=== PATIENT | male | born 1960 | race Caucasian/White ===

== ENCOUNTER 2019-03-22 10:32 | Emergency (ER) | payer SELFPAY ==
[~2019-03-22] VITALS: Ht 175.3 cm; Wt 89.5 kg
[2019-03-22 10:38] VITALS: BP 133/91; Ht 175.3 cm; Wt 89.5 kg
[2019-03-22] MEDS ORDERED: DOXYCYCLINE HY100 M2 PO (12:26)
[2019-03-22] MEDS ORDERED: TORADOL10 MG PO (12:26)
== END 2019-03-22 13:11 | disposition home or self-care (01) ==
LOC: D.ER 10:32
DX: S90.32XA Contusion of left foot, initial encounter (principal); W20.8XXA Other cause of strike by thrown, projected or falling object, initial encounter; Y93.89 Activity, other specified; Y92.89 Other specified places as the place of occurrence of the external cause; Y99.0 Civilian activity done for income or pay; E11.9 Type 2 diabetes mellitus without complications; I10 Essential (primary) hypertension

== ENCOUNTER 2019-07-30 02:06 | Inpatient (IN) | payer BC ==
[~2019-07-30] VITALS: Ht 175.3 cm; Wt 90.7 kg
[~2019-07-30 02:06] MED LIST: DOXYCYCLINE HY100 M2 PO; TORADOL10 MG PO
[2019-07-30] MEDS ORDERED: ALBUTEROL SULF8.5 GM INH (02:31)
[2019-07-30] MEDS ORDERED: TESSALON PERLE100 MG PO (02:32)
[2019-07-30] MEDS ORDERED: HYDROXYCHLOROQ200 MG PO ×2 (02:32→04:58)
[2019-07-30] MEDS ORDERED: ZITHROMAX250 MG PO (02:32)
[2019-07-30] MEDS ORDERED: PLAVIX75 MG PO (02:34)
[2019-07-30] MEDS ORDERED: LISINOPRIL20 MG PO (02:34)
[2019-07-30] MEDS ORDERED: TENORMIN50 MG PO (02:34)
[2019-07-30] MEDS ORDERED: GLUCOPHAGE1000 MG PO (02:36)
[2019-07-30] MEDS ORDERED: VICTOZA0.6 MG/0.1 SQ (02:36)
[2019-07-30] MEDS ORDERED: AMBIEN10 MG PO (02:37)
[2019-07-30] MEDS ORDERED: SINGULAIR10 MG PO (02:38)
[2019-07-30] MEDS ORDERED: ATIVAN1 MG PO (02:38)
[2019-07-30] MEDS ORDERED: AZITHROMYCIN500 MG PO (03:07)
[2019-07-30] MEDS ORDERED: OMNICEF300 MG PO (03:07)
[2019-07-30 03:30] LABS: BASOPHILS 0.4 % (0-2); EOSINOPHILS 0 % (0-7); HEMATOCRIT 41.1 % (42.0-54.0); IMMATURE GRANULOCYTES 0.4 % (0-5); LYMPHOCYTES 15.6 % (15-50); MCH 30.8 pg (26.0-34.0); MCHC 34.1 g/dL (31.0-37.0); MCV 90.3 fL (80.0-100.0); MEAN PLATELET VOLUME 10.6 fL (7.4-10.4); MONOCYTES 13.9 % (2-11); NEUTROPHILS 69.7 % (40-80); PLATELET COUNT 247 10x3/uL (130-400); RBC 4.55 10x6/uL (4.20-6.10); RDW 13.6 % (11.5-14.5); WBC 4.8 10x3/uL (4.8-10.8)
[2019-07-30 03:35] LABS: CALC OSMOLALITY 264 mosm/kg (275-300); CALCIUM 8.6 mg/dL (8.5-10.1); CARBON DIOXIDE 25.5 mmol/L (21.0-32.0); CHLORIDE - SERUM 95 mmol/L (98-107); CREATININE - SERUM 1.4 mg/dL (0.6-1.3); GLUCOSE 114 mg/dL (74-106); POTASSIUM - SERUM 4.1 mmol/L (3.5-5.1); SODIUM 130 mmol/L (136-145); UREA NITROGEN 22 mg/dL (7-18); eGFR NON AFRICAN AMERICAN 55 mL/min (90-120)
[2019-07-30 03:48] LABS: ALBUMIN 2.9 g/dL (3.4-5.0); ALKALINE PHOSPHATASE 46 U/L (30-120); ALT (SGPT) 50 U/L (10-68); BILIRUBIN - TOTAL 0.47 mg/dL (0.2-1.3); C-REACTIVE PROTEIN > 12.0 mg/dL (0.0-0.9); MAGNESIUM - SERUM 2.2 mg/dL (1.8-2.4); PRO BNP 36 pg/mL (0-125); PROTEIN - SERUM 7.2 g/dL (6.4-8.2); TROPONIN-I < 0.017 ng/mL (0.000-0.060)
[2019-07-30 03:54] VITALS: BP 113/85
--- NOTE | 2019-07-30 04:15 | NUR ---
PT TAKEN TO CT VIA WHEELCHAIR BY TECH. TECH WILL TAKE PT TO HIS ROOM ON MED II WHEN CT IS COMPLETE.
[2019-07-30] MEDS ORDERED: APAP325 MG PO (04:56)
[2019-07-30 05:34] VITALS: BP 103/64; BMI 29.6
--- NOTE | 2019-07-30 05:41 | NUR ---
RECEIVED REPORT FROM BALJEET JEONG IN ER. ARRIVED TO FLOOR IN W/C. ALERT AND ORIENTED X4. UP AD FRANCIA TO B/R. DIAPHORETIC AND GOWN CHANGED. TEMP NOW 99.1. IV TO RT FA SL. C/O LOOSE STOOLS D/T MEDICATIONS HE IS TAKING FOR COVID. DEIES ANY NEEDS AT THIS TIME.
[2019-07-30 08:38] VITALS: BP 136/78
--- NOTE | 2019-07-30 08:49 | NUR ---
PT AWAKE AND ORIENTED, LYING IN BED. LINNENS ARE CLEAN AND DRY, STATES HE'S NOT SWEATING PERFUSELY LIKE HE WAS ON PANEL MONITOR. STATES HE DOES NOT HAVE A HEADACHE AT THIS TIME, THAT HE JUST DOESN'T FEEL "RIGHT". UNABLE TO ELABORATE ON THAT FEELING. NO COMPLAINTS OR CONCERNS AT THIS TIME. V/S WNL. CL IN REACH SRX2.
[2019-07-30 10:29] VITALS: Ht 175.3 cm; Wt 90.7 kg
--- NOTE | 2019-07-30 11:42 | NUR ---
I have reviewed this patient and I concur with the Shift Assessment completed by the Licensed Practical Nurse today this shift.
--- NOTE | 2019-07-30 18:32 | NUR ---
PT ALERT AND ORIENTED, SITTING UP IN BED WHE I ENTERED. C/O FEELING FEVERISH (TEMP 100.1, ADMINED TYLENOL). NO CONCERNS STATED AT THIST EVELINE. CL IN REACH, SRX2.
--- NOTE | 2019-07-30 21:15 | NUR ---
PREVIOUSLY SPOKE TO PT BY PHONE PHISICAL CONTACT AT THIS TIME USING ALL ISOLATION PRECAUTIONS BED LOW AND LOCKED MANY NEEDS ARE SEEN TOO NOP FEVER BS 118 VS WNL SL IV FOR NOW TO PRESERVE SITE ATIVAN AND PROTONIX GIVEN TO PT PER HIS REQUEST
[2019-07-30 21:40] VITALS: BP 117/71
--- NOTE | 2019-07-31 03:34 | NUR ---
I have reviewed this patient and I concur with the Shift Assessment completed by the Licensed Practical Nurse today this shift.
[2019-07-31 05:30] LABS: BASOPHILS 0.6 % (0-2); EOSINOPHILS 15.3 % (0-7); HEMATOCRIT 38.5 % (42.0-54.0); HEMOGLOBIN 12.8 g/dL (13.5-17.5); LYMPHOCYTES 14.2 % (15-50); MCH 30.5 pg (26.0-34.0); MCHC 33.2 g/dL (31.0-37.0); MCV 91.7 fL (80.0-100.0); MEAN PLATELET VOLUME 10.4 fL (7.4-10.4); MONOCYTES 11.6 % (2-11); NEUTROPHILS 52.3 % (40-80); PLATELET COUNT 262 10x3/uL (130-400); RDW 13.8 % (11.5-14.5); WBC 4.6 10x3/uL (4.8-10.8)
[2019-07-31 06:18] LABS: ALBUMIN 2.5 g/dL (3.4-5.0); ANION GAP 13.5 mmol/L (8-16); BILIRUBIN - TOTAL 0.32 mg/dL (0.2-1.3); CARBON DIOXIDE 23.7 mmol/L (21.0-32.0); CREATININE - SERUM 1.2 mg/dL (0.6-1.3); POTASSIUM - SERUM 4.2 mmol/L (3.5-5.1); PROTEIN - SERUM 6.6 g/dL (6.4-8.2)
[2019-07-31 09:02] VITALS: BP 110/62
--- NOTE | 2019-07-31 09:23 | MORECARE ---
CASE MANAGEMENT DISCHARGE SUMMARY PATIENT: SHYLA ELLIOTT JR UNIT: [id number] ADM DATE: 07/30/19 AGE: 58 : 58 SEX: M ROOM/BED: D.2133 AUTHOR: EDDIE MACHUCA PHYSICIAN: REFERRING PHYSICIAN: LUISITO LINARES MD DATE OF SERVICE: 07/31/19 Discharge Plan Patient Name: SHYLA ELLIOTT [facility] [facility] 1960 Planned Disposition: Home Anticipated Discharge Date: Discharge Date: Expected LOS: Initial Reviewer: [email or web address] Initial Review Date: 07/31/2019 Generated: 07/31/19 10:23 am DCPIA - Discharge Planning Initial Assessment Updated by [email or web address]: Jerson Garces on 07/31/19 9:21 am * Is the patient Alert and Oriented? Yes * How many steps to enter\exit or inside your home? * PCP DR. SAHU * Pharmacy [facility] * Preadmission Environment Home with Family * ADLs Independent * Equipment None * Other Equipment NO MEDICAL EQUIPMENT PROVIDER PREFERENCE * List name and contact numbers for known caregivers / representatives who currently or will assist patient after discharge: ROSALIE ELLIOTT, SPOUSE, * Verbal permission to speak to the caregivers and representatives has been obtained from the patient. N/A * Community resources currently utilized None * Please name any agencies selected above. NONE * Additional services required to return to the preadmission environment? No * Can the patient safely return to the preadmission environment? Yes * Has this patient been hospitalized within the prior 30 days at any hospital? No Patient Name: SHYLA ELLIOTT Page [phone] at 0923 All edits/amendments must be made on the electronic document DICTATION DATE: 07/31/19922 LITHOGRAPHIC PRESS OPERATOR: KAYLIN 07/31/19922 RPT#: [id number] DC DATE: STATUS: ADM IN [facility] [address] [place] [address] END OF REPORT
--- NOTE | 2019-07-31 09:30 | MORECARE ---
CASE MANAGEMENT DISCHARGE SUMMARY PATIENT: SHYLA ELLIOTT JR UNIT: [id number] ADM DATE: 07/30/19 AGE: 58 : 58 SEX: M ROOM/BED: D.2133 AUTHOR: SVEN,DOC PHYSICIAN: REFERRING PHYSICIAN: LUISITO LINARES MD DATE OF SERVICE: 07/31/19 Discharge Plan Patient Name: SHYLA ELLIOTT Facility: [facility]:[place] : 1960 Planned Disposition: Home Anticipated Discharge Date: Discharge Date: Expected LOS: Initial Reviewer: [email or web address] Initial Review Date: 07/31/2019 Generated: 07/31/19 10:29 am Comments DCP- Discharge Planning Updated by [email or web address]: Jerson Garces on 07/31/19 8:[address] Patient Name: SHYLA ELLIOTT Admission Status: ER Accout number: [id number] Admission Date: 07-30-2019 : 1960 Admission Diagnosis: Attending: LUISITO LINARES Current LOS: 1 Anticipated DC Date: Planned Disposition: Home Primary Insurance: BCTNLIFE Discharge Planning Comments: CM SPOKE TO PT VIA ROOM PHONE DUE TO INFECTION CONTROL PROTOCOL, TO DISCUSS DISCHARGE PLANNING AND NEEDS. PT REPORTS LIVING AT HOME INDEPENDENTLY WITH HER SPOUSE. PT HAS NO MEDICAL EQUIPMENT AND NO OUTSIDE SERVICES ASSISTING IN THE HOME. CM DISCUSSED AVAILABILITY OF HOME HEALTH, REHAB SERVICES AND MEDICAL EQUIPMENT. PT DENIES DISCHARGE NEEDS AT THIS TIME, REPORTS FAMILY WILL PICK HIM UP FOR DISCHARGE HOME. PT PLANS TO DISCHARGE HOME WITH SPOUSE, PT HAS NO ANTICIPATED DISCHARGE NEEDS AT THIS TIME. FAMILY TO TRANSPORT HOME AT DISCHARGE. CM TO FOLLOW AND ASSIST IF NEEDED. Sales Engineering Manager: Jerson Garces DCPIA - Discharge Planning Initial Assessment Updated by [email or web address]: Jerson Garces on 07/31/19 9:21 am * Is the patient Alert and Oriented? Yes * How many steps to enter\exit or inside your home? * PCP DR. SAHU * Pharmacy [facility] [place] * Preadmission Environment Home with Family * ADLs Independent * Equipment None * Other Equipment NO MEDICAL EQUIPMENT PROVIDER PREFERENCE * List name and contact numbers for known caregivers / representatives who currently or will assist patient after discharge: ROSALIE ELLIOTT, SPOUSE, * Verbal permission to speak to the caregivers and representatives has been obtained from the patient. N/A * Community resources currently utilized None * Please name any agencies selected above. NONE * Additional services required to return to the preadmission environment? No * Can the patient safely return to the preadmission environment? Yes * Has this patient been hospitalized within the prior 30 days at any hospital? No Last DP export: 07/31/19 8:23 a Patient Name: SHYLA ELLIOTT Page [phone] at 0930 All edits/amendments must be made on the electronic document DICTATION DATE: 07/31/19928 SECURITY INFRASTRUCTURE ENGINEER: DM 07/31/19928 RPT#: [id number] DC DATE: STATUS: ADM IN [facility] [address] [place] [address] END OF REPORT
--- NOTE | 2019-07-31 14:07 | NUR ---
I have reviewed this patient and I concur with the Shift Assessment completed by the Licensed Practical Nurse today this shift.
[2019-07-31 16:27] VITALS: BP 121/61
--- NOTE | 2019-07-31 19:07 | NUR ---
SPOKE WITH PT BY PHONE PT IS ALERT COUGH NOTED REMINED PT OF STOOL NEEDED CONTINUE TO OBSERVE DROPLET ISOLATION AND ATTEMPTING TO LIMIT TRIPS TO THE ROOM PT DENIES NEEDS AT THIS TIME
[2019-08-01 01:10] VITALS: BP 130/76
--- NOTE | 2019-08-01 05:27 | NUR ---
I have reviewed this patient and I concur with the Shift Assessment completed by the Licensed Practical Nurse today this shift.
[2019-08-01 06:17] VITALS: BP 145/78
[2019-08-01 07:05] LABS: BASOPHILS 0.8 % (0-2); EOSINOPHILS 1.9 % (0-7); HEMATOCRIT 39.7 % (42.0-54.0); IMMATURE GRANULOCYTES 0.6 % (0-5); LYMPHOCYTES 26.7 % (15-50); MCH 30.4 pg (26.0-34.0); MCHC 32.7 g/dL (31.0-37.0); MCV 92.8 fL (80.0-100.0); MEAN PLATELET VOLUME 10.3 fL (7.4-10.4); MONOCYTES 19.7 % (2-11); NEUTROPHILS 50.3 % (40-80); PLATELET COUNT 295 10x3/uL (130-400); RBC 4.28 10x6/uL (4.20-6.10); RDW 13.8 % (11.5-14.5); WBC 4.8 10x3/uL (4.8-10.8)
[2019-08-01 07:42] LABS: ALBUMIN 2.4 g/dL (3.4-5.0); ALKALINE PHOSPHATASE 44 U/L (30-120); BILIRUBIN - TOTAL 0.26 mg/dL (0.2-1.3); CALCIUM 7.4 mg/dL (8.5-10.1); CARBON DIOXIDE 23.1 mmol/L (21.0-32.0); CHLORIDE - SERUM 102 mmol/L (98-107); GLUCOSE 105 mg/dL (74-106); POTASSIUM - SERUM 4.5 mmol/L (3.5-5.1); PROTEIN - SERUM 5.8 g/dL (6.4-8.2); SODIUM 134 mmol/L (136-145); eGFR NON AFRICAN AMERICAN 81 mL/min (90-120)
[2019-08-01 07:43] LABS: ALT (SGPT) 80 U/L (10-68); CALC OSMOLALITY 267 mosm/kg (275-300); UREA NITROGEN 13 mg/dL (7-18)
[2019-08-01 08:43] VITALS: BP 125/68
--- NOTE | 2019-08-01 20:50 | NUR ---
PT SITTING UP IN BED. NO SIGNS OF DISTRESS. PT DENIES ANY PAIN OR NEEDS AT THIS TIME. REINFORCED PIV DRESSING TO RIGHT HAND. CL IN REACH, BED IN LOWEST POSITION.
[2019-08-01 21:07] VITALS: BP 135/72
[2019-08-02 05:05] VITALS: BP 123/75
[2019-08-02 06:50] LABS: ALBUMIN 2.7 g/dL (3.4-5.0); ALKALINE PHOSPHATASE 50 U/L (30-120); ALT (SGPT) 87 U/L (10-68); BILIRUBIN - TOTAL 0.33 mg/dL (0.2-1.3); CALC OSMOLALITY 269 mosm/kg (275-300); CALCIUM 7.7 mg/dL (8.5-10.1); CARBON DIOXIDE 24.1 mmol/L (21.0-32.0); CHLORIDE - SERUM 102 mmol/L (98-107); CREATININE - SERUM 0.9 mg/dL (0.6-1.3); GLUCOSE 114 mg/dL (74-106); POTASSIUM - SERUM 4.4 mmol/L (3.5-5.1); PROTEIN - SERUM 6.3 g/dL (6.4-8.2); SODIUM 135 mmol/L (136-145); UREA NITROGEN 10 mg/dL (7-18); eGFR NON AFRICAN AMERICAN > 90 mL/min (90-120)
[2019-08-02 07:05] LABS: BASOPHILS 0.6 % (0-2); EOSINOPHILS 1.9 % (0-7); HEMATOCRIT 38.8 % (42.0-54.0); HEMOGLOBIN 12.8 g/dL (13.5-17.5); IMMATURE GRANULOCYTES 0.8 % (0-5); LYMPHOCYTES 21.2 % (15-50); MCH 30.5 pg (26.0-34.0); MCV 92.6 fL (80.0-100.0); MEAN PLATELET VOLUME 9.8 fL (7.4-10.4); MONOCYTES 19.3 % (2-11); NEUTROPHILS 56.2 % (40-80); PLATELET COUNT 340 10x3/uL (130-400); RBC 4.19 10x6/uL (4.20-6.10); RDW 13.7 % (11.5-14.5); WBC 5.2 10x3/uL (4.8-10.8)
[2019-08-02 07:09] LABS: C-REACTIVE PROTEIN 18.8 mg/dL (0.0-0.9)
--- NOTE | 2019-08-02 08:15 | NUR ---
PT RECEIVED AWAKE AND ALERT, LYING IN BED. DRY COUGH NOTED. COMPLAINT OF NOT BEING ABLE TO GET OUT OF ROOM AND WALK. PULSE OX 94% ON 2 LITERS.
[2019-08-02 08:19] VITALS: BP 119/66
--- NOTE | 2019-08-02 08:34 | MORECARE ---
CASE MANAGEMENT DISCHARGE SUMMARY PATIENT: SHYLA ELLIOTT JR UNIT: [id number] ADM DATE: 07/30/19 AGE: 58 : 58 SEX: M ROOM/BED: D.2133 AUTHOR: SVEN,DOC PHYSICIAN: REFERRING PHYSICIAN: LUISITO LINARES MD DATE OF SERVICE: 08/02/19 Discharge Plan Patient Name: SHYLA ELLIOTT Facility: [facility]:[place] : 1960 Planned Disposition: Home Anticipated Discharge Date: Discharge Date: Expected LOS: Initial Reviewer: [email or web address] Initial Review Date: 07/31/2019 Generated: 08/02/19 9:34 am DCP- Discharge Planning Updated by [email or web address]: Jerson Garces on 07/31/19 8:[address] Patient Name: SHYLA ELLIOTT Admission Status: ER Accout number: [id number] Admission Date: 07-30-2019 : 1960 Admission Diagnosis: Attending: LUISITO LINARES Current LOS: 1 Anticipated DC Date: Planned Disposition: Home Primary Insurance: BCTNLIFE Discharge Planning Comments: CM SPOKE TO PT VIA ROOM PHONE DUE TO INFECTION CONTROL PROTOCOL, TO DISCUSS DISCHARGE PLANNING AND NEEDS. PT REPORTS LIVING AT HOME INDEPENDENTLY WITH HER SPOUSE. PT HAS NO MEDICAL EQUIPMENT AND NO OUTSIDE SERVICES ASSISTING IN THE HOME. CM DISCUSSED AVAILABILITY OF HOME HEALTH, REHAB SERVICES AND MEDICAL EQUIPMENT. PT DENIES DISCHARGE NEEDS AT THIS TIME, REPORTS FAMILY WILL PICK HIM UP FOR DISCHARGE HOME. PT PLANS TO DISCHARGE HOME WITH SPOUSE, PT HAS NO ANTICIPATED DISCHARGE NEEDS AT THIS TIME. FAMILY TO TRANSPORT HOME AT DISCHARGE. CM TO FOLLOW AND ASSIST IF NEEDED. Architecture Faculty Member: Jerson Garces DCPIA - Discharge Planning Initial Assessment Updated by [id number]: Jerson Garces on 07/31/19 9:21 am * Is the patient Alert and Oriented? Yes * How many steps to enter\exit or inside your home? * PCP DR. SAHU * Pharmacy [facility], [place] * Preadmission Environment Home with Family * ADLs Independent * Equipment None * Other Equipment NO MEDICAL EQUIPMENT PROVIDER PREFERENCE * List name and contact numbers for known caregivers / representatives who currently or will assist patient after discharge: ROSALIE ELLIOTT, SPOUSE, * Verbal permission to speak to the caregivers and representatives has been obtained from the patient. N/A * Community resources currently utilized None * Please name any agencies selected above. NONE * Additional services required to return to the preadmission environment? No * Can the patient safely return to the preadmission environment? Yes * Has this patient been hospitalized within the prior 30 days at any hospital? No Last DP export: 07/31/19 8:30 a Patient Name: SHYLA ELLIOTT Page [phone] at 0834 All edits/amendments must be made on the electronic document DICTATION DATE: 08/02/19833 SALES OFFICE ASSISTANT: DM 08/02/19833 RPT#: [id number] DC DATE: STATUS: ADM IN [facility] [address] [place] [address] END OF REPORT
--- NOTE | 2019-08-02 13:42 | NUR ---
Nutrition Follow-up: In droplet isolation; Covid-19 positive. Nursing reports pt eating well. Noted diarrhea resolved. Diet: Diabetic No new wt; last wt: 200# (07/29) Labs noted: Na 135, Glu 114, Ca 7.7, Alb 2.7 Meds noted: Questran, Protonix, NS @ 100 -Continue current diet as tolerated. -RD following.
--- NOTE | 2019-08-02 19:23 | NUR ---
MADE CONTACT WITH PT BY PHONE PT WAS ALERT AND OX4 ASKED FOR WATER AND SNACKS NEXT TIME I ENTER THE ROOM I WILL LIMIT TIME SPENT IN ROOM MUCH POSS AND WILL CONTINUE TO OBSERVE DROPLET ISOLATION
--- NOTE | 2019-08-02 21:13 | NUR ---
CONTACT MADE WITH PT BED LOW AND LOCKED CALL LIGHT IN REACH SAW TO A FEW NEEDS MEDS GIVEN AND VS DONE
[2019-08-02 21:26] VITALS: BP 137/55
[2019-08-03 00:26] VITALS: BP 124/56
--- NOTE | 2019-08-03 04:02 | NUR ---
I have reviewed this patient and I concur with the Shift Assessment completed by the Licensed Practical Nurse today this shift.
[2019-08-03 05:22] LABS: ALBUMIN 2.3 g/dL (3.4-5.0); ALKALINE PHOSPHATASE 50 U/L (30-120); ALT (SGPT) 71 U/L (10-68); BILIRUBIN - TOTAL 0.43 mg/dL (0.2-1.3); CARBON DIOXIDE 23.3 mmol/L (21.0-32.0); CHLORIDE - SERUM 103 mmol/L (98-107); GLUCOSE 117 mg/dL (74-106); PROTEIN - SERUM 6.6 g/dL (6.4-8.2); SODIUM 134 mmol/L (136-145); eGFR NON AFRICAN AMERICAN 81 mL/min (90-120)
[2019-08-03 05:29] LABS: BASOPHILS 0.5 % (0-2); EOSINOPHILS 3.8 % (0-7); HEMATOCRIT 36.3 % (42.0-54.0); IMMATURE GRANULOCYTES 0.5 % (0-5); LYMPHOCYTES 22.3 % (15-50); MCH 30.6 pg (26.0-34.0); MCHC 33.1 g/dL (31.0-37.0); MCV 92.6 fL (80.0-100.0); MEAN PLATELET VOLUME 10.1 fL (7.4-10.4); MONOCYTES 19.4 % (2-11); NEUTROPHILS 53.5 % (40-80); PLATELET COUNT 399 10x3/uL (130-400); RBC 3.92 10x6/uL (4.20-6.10); RDW 13.6 % (11.5-14.5); WBC 5.8 10x3/uL (4.8-10.8)
[2019-08-03 05:31] LABS: CALC OSMOLALITY 267 mosm/kg (275-300); UREA NITROGEN 11 mg/dL (7-18)
--- NOTE | 2019-08-03 07:22 | NUR ---
PT RECEIVED AWAKE AND ALERT IN BED. RT IN ROOM AT PRESENT. NO NEEDS EXPRESSED.
[2019-08-03 07:58] VITALS: BP 123/76
[2019-08-03 14:09] VITALS: BP 134/69
[2019-08-03 21:16] VITALS: BP 137/75
--- NOTE | 2019-08-03 21:31 | NUR ---
RECEIVED UP IN BED WITH EYES OPEN AND TV ON. ALERT AND ORIENTED X4. UP AD FRANCIA. NOT WEARING O2 AT THIS TIME. O2 SAT 97% ON ROOM AIR. IV TO RT HAND SL. TELEMETRY IN PLACE. DENIES ANY NEEDS AT THIS TIME.
[2019-08-04 00:10] VITALS: BP 128/78
[2019-08-04 04:58] LABS: BASOPHILS 1.1 % (0-2); EOSINOPHILS 4.7 % (0-7); HEMATOCRIT 38.6 % (42.0-54.0); HEMOGLOBIN 12.6 g/dL (13.5-17.5); IMMATURE GRANULOCYTES 1.3 % (0-5); LYMPHOCYTES 26.4 % (15-50); MCH 30.3 pg (26.0-34.0); MCHC 32.6 g/dL (31.0-37.0); MCV 92.8 fL (80.0-100.0); MEAN PLATELET VOLUME 9.7 fL (7.4-10.4); MONOCYTES 16.9 % (2-11); NEUTROPHILS 49.6 % (40-80); PLATELET COUNT 460 10x3/uL (130-400); RBC 4.16 10x6/uL (4.20-6.10); RDW 13.4 % (11.5-14.5); WBC 5.3 10x3/uL (4.8-10.8)
[2019-08-04 05:15] LABS: ALBUMIN 2.5 g/dL (3.4-5.0); BILIRUBIN - TOTAL 0.32 mg/dL (0.2-1.3); CALCIUM 8.1 mg/dL (8.5-10.1); CARBON DIOXIDE 26.5 mmol/L (21.0-32.0); CREATININE - SERUM 1.1 mg/dL (0.6-1.3); POTASSIUM - SERUM 3.5 mmol/L (3.5-5.1)
[2019-08-04 05:35] VITALS: BP 131/73
--- NOTE | 2019-08-04 08:59 | NUR ---
PT LAYING SUPINE, RR EVEN AND UNLABORED. DENIES NEEDS OR PAIN AT THIS TIME. CALL LIGHT WITHIN REACH. BED IN LOWEST POSITION. WILL CONTINUE TO MONITOR.
[2019-08-04 09:43] VITALS: BP 144/86
[2019-08-04 12:23] VITALS: BP 131/69
--- NOTE | 2019-08-04 17:21 | NUR ---
D/C INS TRUCTIONS REVIEWED WITH PT. VERBALIZED AGREEMENT. MONITOR REMOVED AND RETURNED TO AUTOMATIC CLIPPER AND STRIPPER. PT LEFT WITH ALL BELONGINGS AND ISOLATION PRECAUTIONS INTACT VIA WHEELCHAIR. UNABLE TO SIGN PAPERWORK DUE TO ISOLATION.
--- NOTE | 2019-08-05 10:37 | MORECARE ---
CASE MANAGEMENT DISCHARGE SUMMARY PATIENT: SHYLA ELLIOTT JR UNIT: [id number] ADM DATE: 07/30/19 AGE: 58 : 58 SEX: M ROOM/BED: D.2133 AUTHOR: SVEN,DOC PHYSICIAN: REFERRING PHYSICIAN: LUISITO LINARES MD DATE OF SERVICE: 08/05/19 Discharge Plan Patient Name: SHYLA ELLIOTT Facility: [facility]:[place] : 1960 Planned Disposition: Home Anticipated Discharge Date: Discharge Date: 08/04/2019 Expected LOS: Initial Reviewer: [email or web address] Initial Review Date: 07/31/2019 Generated: 08/05/19 11:36 am DCP- Discharge Planning Updated by [email or web address]: Jerson Garces on 07/31/19 8:[address] Patient Name: SHYLA ELLIOTT Admission Status: ER Accout number: [id number] Admission Date: 07-30-2019 : 1960 Admission Diagnosis: Attending: LUISITO LINARES Current LOS: 1 Anticipated DC Date: Planned Disposition: Home Primary Insurance: BCTNLIFE Discharge Planning Comments: CM SPOKE TO PT VIA ROOM PHONE DUE TO INFECTION CONTROL PROTOCOL, TO DISCUSS DISCHARGE PLANNING AND NEEDS. PT REPORTS LIVING AT HOME INDEPENDENTLY WITH HER SPOUSE. PT HAS NO MEDICAL EQUIPMENT AND NO OUTSIDE SERVICES ASSISTING IN THE HOME. CM DISCUSSED AVAILABILITY OF HOME HEALTH, REHAB SERVICES AND MEDICAL EQUIPMENT. PT DENIES DISCHARGE NEEDS AT THIS TIME, REPORTS FAMILY WILL PICK HIM UP FOR DISCHARGE HOME. PT PLANS TO DISCHARGE HOME WITH SPOUSE, PT HAS NO ANTICIPATED DISCHARGE NEEDS AT THIS TIME. FAMILY TO TRANSPORT HOME AT DISCHARGE. CM TO FOLLOW AND ASSIST IF NEEDED. Motor Generator Set Operator: Jerson Garces DCPIA - Discharge Planning Initial Assessment Updated by [email or web address]: Jerson Garces on 07/31/19 9:21 am * Is the patient Alert and Oriented? Yes * How many steps to enter\exit or inside your home? * PCP DR. SAHU * Pharmacy [facility], [place] * Preadmission Environment Home with Family * ADLs Independent * Equipment None * Other Equipment NO MEDICAL EQUIPMENT PROVIDER PREFERENCE * List name and contact numbers for known caregivers / representatives who currently or will assist patient after discharge: ROSALIE ELLIOTT, SPOUSE, * Verbal permission to speak to the caregivers and representatives has been obtained from the patient. N/A * Community resources currently utilized None * Please name any agencies selected above. NONE * Additional services required to return to the preadmission environment? No * Can the patient safely return to the preadmission environment? Yes * Has this patient been hospitalized within the prior 30 days at any hospital? No Last DP export: 08/02/19 7:34 am Patient Name: SHYLA ELLIOTT Page 11170 at 1037 All edits/amendments must be made on the electronic document DICTATION DATE: 08/05/19 1036 CHURCH ORGANIST: KAYLIN 08/05/19 1036 RPT#: [id number] DC DATE:08/04/19 STATUS: DIS IN [facility] [address] [place] [address] END OF REPORT
== END 2019-08-04 17:30 | disposition home or self-care (01) | DRG 190 ==
LOC: D.ER 02:06 → D.M2 03:45
PROVIDERS: Family Medicine; Internal Medicine Pulmonary Disease; ADMIT Internal Medicine Nephrology; ATTEND Internal Medicine Nephrology
DX: J44.0 Chronic obstructive pulmonary disease with (acute) lower respiratory infection (principal); J18.9 Pneumonia, unspecified organism; E87.1 Hypo-osmolality and hyponatremia; N17.9 Acute kidney failure, unspecified; J44.1 Chronic obstructive pulmonary disease with (acute) exacerbation; B97.29 Other coronavirus as the cause of diseases classified elsewhere; R19.7 Diarrhea, unspecified; E11.65 Type 2 diabetes mellitus with hyperglycemia; D64.9 Anemia, unspecified; Z87.891 Personal history of nicotine dependence

== ENCOUNTER 2019-09-25 11:03 | Emergency (ER) | payer OTHER ==
[~2019-09-25] VITALS: Ht 175.3 cm; Wt 84.5 kg
[~2019-09-25 11:03] MED LIST changes: +ALBUTEROL SULF8.5 GM INH; +AMBIEN10 MG PO; +APAP325 MG PO; +ATIVAN1 MG PO; +AZITHROMYCIN500 MG PO; +GLUCOPHAGE1000 MG PO; +HYDROXYCHLOROQ200 MG PO; +LISINOPRIL20 MG PO; +OMNICEF300 MG PO; +PLAVIX75 MG PO; +SINGULAIR10 MG PO; +TENORMIN50 MG PO; +TESSALON PERLE100 MG PO; +VICTOZA0.6 MG/0.1 SQ; +ZITHROMAX250 MG PO
[2019-09-25 11:12] VITALS: BP 146/103; Ht 175.3 cm; Wt 84.5 kg
== END 2019-09-25 12:34 | disposition home or self-care (01) ==
LOC: D.ER 11:03
DX: S01.01XA Laceration without foreign body of scalp, initial encounter (principal); W22.8XXA Striking against or struck by other objects, initial encounter; Y93.9 Activity, unspecified; Y92.9 Unspecified place or not applicable; E11.9 Type 2 diabetes mellitus without complications; I10 Essential (primary) hypertension; J44.9 Chronic obstructive pulmonary disease, unspecified

== ENCOUNTER → 2019-11-26 08:03 | Outpatient (CLI) | payer BC ==
[2019-09-25 11:12] VITALS: BMI 27.5
== END | disposition home or self-care (01) ==
LOC: D.LAB 08:03
PROVIDERS: ATTEND Internal Medicine Pulmonary Disease
DX: Z11.59 Encounter for screening for other viral diseases (principal)

== ENCOUNTER → 2019-11-27 09:27 | Outpatient (CLI) | payer BC ==
[2019-09-25 11:12] VITALS: BMI 27.5
== END | disposition home or self-care (01) ==
LOC: D.RT 09:27
PROVIDERS: ATTEND Internal Medicine Pulmonary Disease
DX: J44.9 Chronic obstructive pulmonary disease, unspecified (principal); Z87.01 Personal history of pneumonia (recurrent)

== ENCOUNTER → 2019-12-03 14:36 | Outpatient (CLI) | payer BC ==
[2019-09-25 11:12] VITALS: BMI 27.5
== END | disposition home or self-care (01) ==
LOC: D.RAD 14:36
PROVIDERS: ATTEND Internal Medicine Pulmonary Disease
DX: Z87.01 Personal history of pneumonia (recurrent) (principal)

== ENCOUNTER 2020-09-11 15:52 | Observation (INO) | payer BC ==
[~2020-09-11] VITALS: Ht 175.3 cm; Wt 85.5 kg
--- NOTE | ~2020-09-11 | CN ---
PATIENT NAME:SHYLA ELLIOTT JR MEDICAL RECORD: [id number] : 58 LOCATION:[facility] D.2115 ADMIT DATE: 09/11/20 ACCOUNT: [id number] CONSULTING PHYSICIAN: DAXA STARKS MD REFERRING PHYSICIAN: DAXA GARCIA MD DATE OF CONSULTATION: 09/12/2020 HISTORY OF PRESENT ILLNESS: This is a 59-year-old gentleman with history of hypertension, hyperlipidemia, diabetes, intermittent chest pain over the past 3-4 days, reports increasing shortness of breath, dyspnea as well as some chest pain, heaviness and tightness. Occasionally worse with deep inspiration, not worse with movement. Has a history of cerebrovascular disease with TIA in the past, maintained on Plavix therapy. We are asked to see him concerning his cardiovascular status. PAST MEDICAL HISTORY: Includes history of; 1. Hypertension. 2. Cerebrovascular disease status post TIA. 3. Diabetes mellitus. 4. Dyslipidemia. MEDICATIONS: Typically include Victoza 1.8 mg daily, metformin 1 gram b.i.d., montelukast 10 mg p.o. at bedtime, Ativan 1 mg p.o. b.i.d. p.r.n., Ambien 10 mg p.o. at bedtime, atenolol 50 daily, lisinopril 20 daily, Plavix 75 daily. ALLERGIES: PENICILLIN, DOXYCYCLINE. SOCIAL HISTORY: Works here in the OR. Nonsmoker, nondrinker. Easily takes care all of his ADLs. REVIEW OF SYSTEMS: The patient reports easy bruising but reports no swollen glands. The patient reports no fever, no night sweats, no significant weight gain, no significant weight loss. No significant exercise tolerance. The patient reports no dry eyes, no irritation, no vision change. Patient reports no difficulty hearing and no ear pain. Patient reports no frequent nose bleeds or nose and sinus problems. Patient reports on arm pain on exertion. No shortness of breath while lying down. No history of heart murmur. Patient reports no cough, no wheezing or coughing up blood. Patient reports no abdominal pain, no vomiting. Normal appetite. No diarrhea and not vomiting blood. No nausea and no constipation. Patient reports no incontinence. No difficulty urinating. No hematuria. No increased frequency. Patient reports no muscle aches. No weakness, no arthralgias, no back pain. No swelling of the extremities. Patient reports no abnormal mole, no jaundice, no rashes. Reports no loss of consciousness. No weakness and no numbness. No seizures, dizziness, or headaches. The patient reports no depression, no sleep disturbance, feeling safe in a relationship and no alcohol abuse. Patient reports on fatigue. Reports no runny nose or sinus pressure. No itching, no hives, and no frequent sneezing. PHYSICAL EXAMINATION: GENERAL: No acute distress, appears stated age. VITAL SIGNS: 122/75, pulse 68 and regular. HEENT: Normocephalic, atraumatic. NECK: No JVD or bruit. HEART: Regular. CONSULT REPORT [id number] SHYLA ELLIOTT JR LUNGS: Nielsen are clear. ABDOMEN: Soft and nontender. EXTREMITIES: Pulses 2+. No edema. IMPRESSION: Acute coronary syndrome, known vascular disease as well as multiple risk factors. PLAN: For angiography and intervention based on above. TRANSINT:[id number] Voice Confirmation ID: [id number] DOCUMENT ID: [id number] DAXA STARKS MD CC: [id number] DICTATION DATE: 09/12/20 1046 AUTOMOBILE PAINTER: 09/12/20 1123 ADM IN [facility] [address] [place] [address]
--- NOTE | ~2020-09-11 | OP ---
PATIENT NAME: SHYLA ELLIOTT JR MEDICAL RECORD: [id number] :58 LOCATION:D.M2 D.5 ADMISSION DATE:09/11/20 SURGEON: DAXA STARKS MD DATE OF OPERATION: 09/12/2020 PROCEDURE PERFORMED: Left heart catheterization, selective coronary angiography, right femoral artery approach plus IFR wire to the LAD plus intervention to the LAD. FINDINGS: Left ventriculography in 30-degree HERNANDEZ view, normal wall motion, normal systolic function. CORONARY ANATOMY: LEFT MAIN: Left main is free of disease. LAD: Has a very proximal as well as ostial 90% stenosis confirmed via IFR wire. CIRCUMFLEX: Codominant system, free of disease. RIGHT CORONARY ARTERY: Codominant system, free of disease. IMPRESSION: A 90% stenosis confirmed angiographically and via IFR wire proximal LAD. PLAN: Intervention momentarily. DESCRIPTION OF PROCEDURE: A 5-Mosotho sheath was exchanged for a 6-Mosotho sheath. XB LAD guide catheter provided excellent guide catheter support followed by IFR wire described above. Stent deployed was 3.5 x 12 [place] drug-eluting stent up to 14 atmospheres for 45 seconds. Final angiography showed excellent resolution of 90% stenosis, no significant residual, ABDIRASHID flow 3 throughout the procedure. Heparin was used during the case. The patient previously on Plavix. Sheath closed with ExoSeal device. TRANSINT:[id number] Voice Confirmation ID: [id number] DOCUMENT ID: [id number] DAXA STARKS MD CC: [id number] DICTATION DATE: 09/12/20 1136 WAREHOUSE TECHNICIAN: 09/12/204 DIS IN 09/12/20 [facility] [address] [place] [address]
--- NOTE | ~2020-09-11 | HEMODYNAMI ---
PATIENT:SHYLA ELLIOTT JR MEDICAL RECORD: [id number] : 58 [id number] ADMISSION DATE: 09/11/20 Generatedon:111:41 Patient name: SHYLA ELLIOTT Patient #: [id number] SSN: [id number] : 1960 Date of study: 09/12/2020 Page: Of Hemodynamic Procedure Report Patient Data Patient Demographics Procedure consent was obtained First Name: SHYLA Gender: Male Last Name: LEXI Suffix: Patient #: [id number] : 1960 Age: 59 year(s) SSN: [id number] Race: Additional ID: [id number] Contact details Address: [address] [place] [address] State: [place] City: [place] Zip code: [address] Past Medical History Allergies Allergen Reaction Date Comments Reported Other allergy 09/12/2020 PCN, DOXYCYCLINE Admission Admission Data Admission Date: 09/11/2020 Admission Time: 18:14 Arrival Date: 09/12/2020 Arrival Time: 0:00 Admit Source: Other Insurance Payor: Private Room #: [id number] health insurance [facility] #: [id number] Height (in.): 69 BSA: 2.01 (m2) Height (cm.): 175.26 BMI: 27.82 (kg/m2) Weight (lbs.): 188.39 Weight (kg.): 85.45 Lab Results Lab Result Date: 09/12/2020 Lab Result Time: 0:00 Biochemistry Name Units Result Min Max BUN mg/dl 12 --(-*--)-- 7 18 CK-MB ng/ml 0.9 --(*---)-- 0 3.6 Creatinine mg/dl 1.1 --(--*-)-- 0.6 1.3 eGFR ml/min 72 *-(----)-- 90 120 NONAFRICAN Troponin l ng/ml 0.017 --(-*--)-- 0 0.06 CBC Name Units Result Min Max Hematocrit % 42.6 --(*---)-- 42 54 Hemoglobin g/dl 14.3 --(*---)-- 13.5 17.5 Procedure Procedure Types Cath Procedure Diagnostic Procedure [facility] w/Coronaries FFR/IVUS FFR Initial Sedation Charges Moderate Sedation 10-24 minutes PCI Procedure Coronary Stent Coronary Stent Initial Hemochron ACT Test Procedure Description Procedure Date Procedure Date: 09/12/2020 Procedure Start Time: 11:12 Procedure End Time: 11:37 Procedure Staff Name Function Sage Hamilton MD Performing Physician Ariadna Nicole RN Nurse Luh Mitchell RT Scrub Edelmira Nielsen RT Monitor Procedure Data Cath Procedure Fluoroscopy Diagnostic fluoroscopy Total fluoroscopy Time: 3.5 time: 3.5 min min Diagnostic fluoroscopy Total fluoroscopy dose: 427 dose: 427 mGy mGy Contrast Material Contrast Material Type Amount (ml) Isovue 300 82 Entry Location Entry Primary Successful Side Size Upsize Upsize Entry Closure Succes sful Closure Location (Fr) 1 (Fr) 2 (Fr) Remarks Device Remarks Femoral Right 5 Fr 6 Fr Exoseal artery Short Estimated blood loss: 10 ml Diagnostic catheters Device Type Used For End Catheter Placement MULTIPACK JL 4.0 5Fr Procedure catheter MULTIPACK 3DRC 5Fr Procedure catheter MULTIPACK Pigtail 5 Fr Procedure catheter Procedure Complications No complications Procedure Medications Medication Administration Route Dosage Oxygen etCO2 Nasal cannula 2 l/min Lidocaine 2% added to field 20 Heparin Flush Bag added to field 2 bags (1000units/500ml NS) 0.9% NaCl I.V. 100 ml/hr Versed I.V. 1 mg Fentanyl I.V. 50 mcg Versed I.V. 1 mg Fentanyl I.V. 50 mcg Heparin Bolus I.V. 5000 units Versed I.V. 1 mg Fentanyl I.V. 50 mcg Versed I.V. 1 mg Fentanyl I.V. 50 mcg Heparin Bolus I.V. 2000 units Hemodynamics Rest BSA: 2.01 (m2) HGB: 14.3 (g/dl) O2 Consumption: Estimated: 246.74 (ml/min) O2 Co nsumption indexed: Estimated:122.76 (ml/min/m) Heart Rate: 84 (bpm) Pressure Samples Time Site Value (mmHg) Purpose Heart Use Rate(bpm) 11:19 LV 113/9,12 Snapshot 79 11:19 AO 124/61(92) Pullback 77 Gradients Valve Time Site Site 2 Mean SEP/DFP Peak To Heart Use 1 (mmHg) (sec/min) Peak Rate (mmHg) (bpm) Aortic 11:19 LV AO 4 5 77 124/61(92) Calculations Valve P-P Mean Valve Index Valve Source Name Gradient Area Flow (cm2) Aortic 4 4 Snapshots Pre Cath Intra NCS Post Cath Vital Signs Time Heart Resp SPO2 etCO2 NIBP (mmHg) Rhythm Pain Sedation Rate (ipm) (%) (mmHg) Status Level (bpm) 11:04:40 78 21 100 20.4 142/82(122) NSR 0 (11) 10(A) , No pain 11:08:52 72 14 97 11.3 133/80(109) NSR 0 (11) 10(A) , No pain 11:13:06 73 13 97 40.9 133/76(102) NSR 0 (11) 10(A) , No pain 11:17:18 78 11 97 21.2 129/74(106) NSR 0 (11) 9(A) , No pain 11:21:28 79 12 97 0 131/72(97) NSR 0 (11) 9(A) , No pain 11:25:40 83 13 98 34.8 122/75(90) NSR 0 (11) 9(A) , No pain 11:29:48 80 12 98 28 122/78(93) NSR 0 (11) 9(A) , No pain 11:33:55 83 20 100 34.8 122/86(102) NSR 0 (11) 10(A) , No pain Medications Time Medication Route Dose Verified Delivered Reason Notes Effectiveness by by 11:04:58 Oxygen etCO2 2 Sage Rosenthal used for Nasal l/min St Andrey Nicole RN procedure cannula 11:05:06 Lidocaine 2% added 20ml Sage Cazares for local to vial [facility] anesthetic field MD GILL 11:05:14 Heparin Flush added 2 Sage Cazares used for Bag to bags [facility] procedure (1000units/500ml field MD GILL NS) 11:05:26 0.9% NaCl I.V. 100 Sage Rosenthal Per physician ml/hr St Andrey Nicole RN, MD 11:09:03 Fentanyl I.V. 50 Sage Buffie for sedation mcg [facility] Andrey Nicole RN, MD 11:09:57 Versed I.V. 1 mg Sage Buffie for sedation St Andrey Nicole RN, MD 11:12:26 Versed I.V. 1 mg Sage Buffie for sedation St Andrey Nicole RN, MD 11:12:29 Fentanyl I.V. 50 Sage Buffie for sedation mcg [facility] Andrey Nicole RN, MD 11:16:41 Versed I.V. 1 mg Sage Buffie for sedation St Andrey Nicole RN, MD 11:16:45 Fentanyl I.V. 50 Sage Buffie for sedation mcg [facility] Andrey Nicole RN, MD 11:20:05 Heparin Bolus I.V. 5000 Sage Buffie for verif ied units St Andrey Nicole RN anticoagulation with dr MD shannon 11:24:09 Versed I.V. 1 mg Sage Buffie for sedation St Andrey Nicole RN, MD 11:24:13 Fentanyl I.V. 50 Sage Buffie for sedation mcg [facility] Andrey Nicole RN, MD 11:39:16 Heparin Bolus I.V. 2000 Sage Buffie for after units St Andrey Nicole RN anticoagulation act MD results, verified with dr shannon Procedure Log Time Note 10:41:26 Informed consent obtained and on chart 10:41:45 Diagnostic Cath Status : Urgent 10:42:36 Lab Result : Creatinine 1.1 mg/dl 10:42:36 Lab Result : BUN 12 mg/dl 10:42:36 Lab Result : eGFR NONAFRICAN 72 ml/min 10:42:36 Lab Result : Hemoglobin 14.3 g/dl 10:42:36 Lab Result : CK-MB 0.9 ng/ml 10:42:36 Lab Result : Troponin l 0.017 ng/ml 10:42:36 Lab Result : Hematocrit 42.6 % 10:43:01 Arrival Date: 09/12/2020 12:00:00 AM 10:43:02 Admit Source: Other 10:43:06 Patient Height : 69 inches 10:43:11 Patient Weight : 188.39 lbs 10:43:16 Insurance Payor : Private health insurance 10:45:31 Procedure Status Urgent Heart Cath (IP). 10:45:33 Time tracking: Regular hours (M-F 7:00 - 5:00) 10:45:34 Ariadna Nicole RN sent for patient. Start room use. 10:45:35 Time tracking: Regular hours (M-F 7:00 - 5:00) 10:45:40 Plan of Care:Hemodynamics will remain stable., Cardiac rhythm will remain stable., Comfort level will be maintained., Respiratory function will remain adequate., Patient/ family verbilizes understanding of procedure., Procedure tolerated without complication., Recovers from procedure without complications.. 10:46:19 H&P Date Dictated: 09/11/2020 ER History on chart.. 10:46:36 Patient allergic to Other allergyPCN, DOXYCYCLINE 10:54:34 Patient received from Med II to CCL 1 Alert and oriented. Tansferred to table in Supine position. 10:54:35 Warm blankets applied, and grisel hugger turned on for patient comfort. 10:54:36 Correct patient and procedure confirmed by team. 10:54:37 ECG and BP/O2 sat monitors applied to patient. 11:03:38 Vital chart was started 11:03:39 Baseline sample Acquired. 11:03:45 Rhythm: sinus rhythm 11:03:47 Full Disclosure recording started 11:03:48 Pre-procedure instructions explained to patient. 11:03:49 Pre-op teaching completed and patient verbalized understanding. 11:03:52 Family in patients room. 11:03:53 Patient NPO since Midnight. 11:04:42 Is patient on blood thinner?Yes 11:04:44 ACC The patient was administered the following blood thiners within the last 24 hours: ACCPlavix 11:04:46 Patient diabetic? Yes. 11:04:51 Previous problem with sedation/anesthesia? No ? 11:04:52 Snore? Yes 11:04:53 Sleep apnea? No 11:04:54 Deviated septum? No 11:04:55 Opens mouth fully? Yes 11:04:58 Oxygen 2 l/min etCO2 Nasal cannula was administered by Ariadna Nicole RN; used for procedure; Verbal order read back and verified. 11:04:58 Sticks out tongue? Yes 11:05:06 Lidocaine 2% 20ml vial added to field was administered by Sage Hamilton MD; for local anesthetic; Verbal order read back and verified. 11:05:11 Airway obstruction? Yes COPD 11:05:14 Heparin Flush Bag (1000units/500ml NS) 2 bags added to field was administered by Sage Hamilton MD; used for procedure; Verbal order read back and verified. 11:05:14 Dentures? No ? 11:05:16 Pre procedure: right dorsailis pedis pulse 1+ Palpable, but thready & weak; easily obliterated 11:05:22 IV patent on arrival in left antecubital with 0.9% NaCl at KVO. 11:05:26 0.9% NaCl 100 ml/hr I.V. was administered by Ariadna Nicole RN; Per physician; Verbal order read back and verified. 11:05:30 Lab results completed and on chart. 11:05:35 Right groin area was prepped with chlora-prep and draped in sterile fashion 11::35 Alarms reviewed by R. N. 11:05:35 Sharps counted by scrub and verified by R.N. 11:08:07 --------ALL STOP TIME OUT------ 11:08:08 Final Timeout: patient, procedure, and site verified with staff and physician. All members of the team are in agreement. 11:08:09 Right groin site verified by team. 11:08:12 Fire Safety Assessment: A--An alcohol-based skin anteseptic being used preoperatively., C--Open oxygen or nitrous oxide is being used., D--An ESU, laser, or fiber-optic light is being used. 11:08:15 Physical assessment completed. ASA score P 2 - A patient with mild systemic disease as per Sage Hamilton MD. 11:08:17 2) 60-89 Mildly reduced kidney function, and other findings (as for stage 1) point to kidney disease. 11:08:20 Maximum allowable contrast dose (3.7 X eGFR X 0.75)200 ml. 11:08:24 Sedation plan: IV Moderate Sedation Medication:Versed, Fentanyl 11:09:03 Fentanyl 50 mcg I.V. was administered by Ariadna Nicole RN; for sedation; Verbal order read back and verified. 11:09:57 Versed 1 mg I.V. was administered by Ariadna Nicole RN; for sedation; Verbal order read back and verified. 11:11:37 IV Extension Set opened to sterile field. 11:11:44 Zero performed for pressure channel P1 11:11:47 Zero performed for pressure channel P1 11:11:54 Procedure started. 11:12:00 Local anesthetic to right femoral artery with Lidocaine 2% by Sage Hamilton MD.INITIAL ACCESS ONLY 11:12:26 Versed 1 mg I.V. was administered by Ariadna Nicole RN; for sedation; Verbal order read back and verified. 11:12:29 Fentanyl 50 mcg I.V. was administered by Ariadna Nicole RN; for sedation; Verbal order read back and verified. 11:12:56 Use device set Femoral Dx 11:12:58 ACIST Syringe (11996) opened to sterile field. 11:12:58 Bag Decanter (2002S) opened to sterile field. 11:12:59 ACIST Hand Control (97245) opened to sterile field. 11:12:59 ACIST Manifold (35302) opened to sterile field. 11:13:00 Tegaderm 4 x 4 (1626W) opened to sterile field. 11:13:02 Medline Cath Pack ([id number]) opened to sterile field. 11:13:03 DIAGNOSTIC Multipack 5Fr catheter set (FH5847) opened to sterile field. 11:13:04 SHEATH 5FR [place] (ZSD800) opened to sterile field. 11:13:04 EMERALD Guide Wire (687-050) opened to sterile field. 11:13:19 A 5 Fr sheath was inserted into the Right Femoral artery 11:14:18 A MULTIPACK JL 4.0 5Fr catheter was advanced over the wire and used for Procedure. 11:15:41 LCA angiography performed. 11:15:42 Catheter removed. 11:15:50 A MULTIPACK 3DRC 5Fr catheter was advanced over the wire and used for Procedure. 11:16:41 Versed 1 mg I.V. was administered by Ariadna Nicole RN; for sedation; Verbal order read back and verified. 11:16:45 Fentanyl 50 mcg I.V. was administered by Ariadna Nicole RN; for sedation; Verbal order read back and verified. 11:16:54 RCA angiography performed. 11:16:54 Catheter removed. 11:16:56 ACCDominant side:Left 11:17:00 A MULTIPACK Pigtail 5 Fr catheter was advanced over the wire and used for Procedure. 11:18:58 LV gram done using HERNANDEZ 11:19:01 Injector settings: Ml/sec: 10, Volume: 20, 11:19:16 LV hemodynamics recorded. 11:19:22 EF : 55 % 11:19:26 Catheter removed. 11:19:27 Proceeding to intervention. 11:19:54 SHEATH 6FR [place] (WUJ749) opened to sterile field. 11:19:55 [place] OmniWire (32633) opened to sterile field. 11:19:55 INFLATOR Merit BasixCompak (XY7629) opened to sterile field. 11:20:00 GUIDE 6FR XBLAD 3.5 catheter ([id number]) opened to sterile field. 11:20:05 Heparin Bolus 5000 units I.V. was administered by Ariadna Nicole RN; for anticoagulation; verified with dr shannon Verbal order read back and verified. 11:20:24 Sheath upsized to a 6 Fr Short. 11:21:36 6 Fr XBLAD 3.5 guide catheter was inserted over the wire 11:23:26 OMNI Pressure wire advanced. 11:24:09 Versed 1 mg I.V. was administered by Ariadna Nicole RN; for sedation; Verbal order read back and verified. 11:24:13 Fentanyl 50 mcg I.V. was administered by Ariadna Nicole RN; for sedation; Verbal order read back and verified. 11:24:52 Wire advanced across lesion. 11:25:46 LAD lesion measured at .88 with IFR 11:27:09 Pre PCI Site: [place] LAD has 90% stenosis. 11:27:55 The ANDRES OTW 3.5 x 12 stent ([id number]) was advanced then removed because of failure to cross lesion 11::22 Place stent Inflation Number: 1 A ANDRES RX 3.5 x 12 stent ([id number]) was prepped and advanced across the Prox LAD . The stent was deployed at 14 ALEE for 0:00 (min:sec) . 11:32:36 Stent catheter was removed intact over wire. 11:32:39 Wire removed. 11:32:39 Guide catheter removed. 11:33:10 EXOSEAL 6Fr (EX600) opened to sterile field. 11:33:19 Sheath removed intact; hemostasis achieved with Exoseal to the Right Femoral artery. 11:33:21 Procedure ended.(Physican Out) 11:34:23 Contrast amount:Isovue 300 82ml. 11:34:29 Fluoroscopy time 03.50 minutes. 11:34:34 Fluoroscopy dose: 427 mGy 11:34:34 Flurop Dose total: 427 11:34:41 Dose Area Product 07707 mGy/cm. 11:34:45 Maximum allowable dose exceeded? No. 11:34:46 Sharps counted by scrub and verified by R.N. 11:34:49 Post-op/insertion site Right Femoral artery dressed using a 4 x 4 and Tegaderm. 11:34:51 Post-procedure physical assessment completed. ASA score P 2 - A patient with mild systemic disease as per Sage Hamilton MD. 11:35:06 Post procedure rhythm: sinus rhythm 11:35:09 Estimated blood loss: 10 ml 11:35:10 Post procedure instruction explained to patient.Patient verbalizes understanding. 11:35:11 Patient needs reinforcement of post procedure teaching. 11:35:54 Procedure type changed to Cath procedure, Diagnostic procedure, LHC, C w/Coronaries, FFR/IVUS, FFR Initial, Sedation Charges, Moderate Sedation 10-24 minutes, PCI procedure, Coronary Stent, Coronary Stent Initial, Hemochron ACT Test 11:36:49 Procedure and supply charges have been captured, reviewed, submitted and are correct. 11:36:52 Procedure Complication : No complications 11:36:55 Vital chart was stopped 11:36:57 [facility] Findings: MVD- PCI performed (see procedure note) 11:36:59 Operative report dictated upon procedure completion. 11:36:59 See physician's report for complete and final results. 11:37:01 Report given to [facility]. 11:37:03 Patient transfered to [facility] with Bed. 11:37:05 Procedure ended. 11:37:05 Full Disclosure recording stopped 11:37:09 End room use (Document Last) 11:37:39 ACT drawn and resulted at 177 seconds. (normal therapeutic range 180-240 seconds). 11:39:16 Heparin Bolus 2000 units I.V. was administered by Ariadna Nicole RN; for anticoagulation; after act results, verified with dr shannon Verbal order read back and verified. 11:40:54 Procedure ended.(Physican Out) Intervention Summary Intervention Notes Time ActionType Lesion and Equipment Used Action# Pressure Duration Attributes 11:27:55 Discard ANDRES OTW 3.5 x Stent 12 stent ([id number]) 11:31:22 Place stent Prox LAD ANDRES RX 3.5 x 1 14 00:00 12 stent ([id number]) Device Usage Item Name Manufacture Quantity Catalog [facility] Lot# / Number Charge Number Stock Stock Serial# Code IV Extension Hospira 1 68335-41 547537 70547 328515 5 Set ACIST Syringe Acist 1 15680 275083 671640 699958 20 (88571) Medical Systems Inc Bag Decanter Microtek 1 2001S 433493 06963 463292 5 (2001S) Medical Inc. ACIST Hand Acist 1 20099 842997 644230 097438 5 Control Medical (07634) Systems Inc ACIST Manifold Acist 1 12279 596609 281887 599076 5 (67386) Medical Systems Inc Tegaderm 4 x 4 3M 1 1626W 824451 936327 525547 5 (1626W) Medline Cath Medline 1 [id number] 153718 57878 428104 5 Pack ([id number]) DIAGNOSTIC Cardinal 1 YP7364 413216 18075 416538 30 Multipack 5Fr Health catheter set (XT6525) SHEATH 5FR Terumo 1 VWN377 749442 202568 389528 5 [place] (SEN826) EMERALD Guide Cardinal 1 502-455 658279 230334 675854 5 Wire (502-455) Health MULTIPACK JL Cardinal 1 790219 5 4.0 5Fr Health catheter MULTIPACK 3DRC Cardinal 1 079941 5 5Fr catheter Health MULTIPACK Cardinal 1 692130 5 Pigtail 5 Fr Health catheter SHEATH 6FR Terumo 1 ULF022 511391 110128 945449 40 [place] (VHG715) [place] 1 6009041 573204 57198 9941 5 OmniWire (30926) INFLATOR Merit Merit 1 BK4539 423543 724175 341675 15 RealTravel Medical (BZ2336) GUIDE 6FR Cardinal 1 [id number] 834456 367387 741761 10 XBLAD 3.5 Health catheter ([id number]) ANDRES OTW 3.5 x Medtronic 1 [id number] 110429 3194405 986825 5 [id number] 12 stent ([id number]) ANDRES RX 3.5 x Medtronic 1 [id number] 809741 6228405 743033 5 [id number] 12 stent ([id number]) EXOSEAL 6Fr Cardinal 1 EX600 238690 463828 975013 10 (EX600) Health Signature Audit [place] Stage Time Signature Unsigned Intra-Procedure 09/12/2020 Edelmira Nielsen 11:40:36 AM RT(R) Intra-Procedure 09/12/2020 Ariadna Nicole RN 11:40:54 AM Intra-Procedure 09/12/2020 Sage Del Castillo 11:41:48 AM Andrey [address] [place] [address]
[2020-09-11 15:58] VITALS: Ht 175.3 cm; Wt 85.5 kg
[2020-09-11 16:29] LABS: BASOPHILS 0.3 % (0-2); EOSINOPHILS 0.6 % (0-7); HEMATOCRIT 42.3 % (42.0-54.0); HEMOGLOBIN 14.5 g/dL (13.5-17.5); IMMATURE GRANULOCYTES 0.4 % (0-5); LYMPHOCYTE ABS# 2.21 10x3/uL (1.32-3.57); LYMPHOCYTES 19.2 % (15-50); MCH 31.7 pg (26.0-34.0); MCHC 34.3 g/dL (31.0-37.0); MCV 92.4 fL (80.0-100.0); MEAN PLATELET VOLUME 10.3 fL (7.4-10.4); MONOCYTES 14.3 % (2-11); NEUTROPHIL ABS# 7.48 10x3/uL (1.78-5.38); NEUTROPHILS 65.2 % (40-80); RBC 4.58 10x6/uL (4.20-6.10); RDW 13.1 % (11.5-14.5); WBC 11.5 10x3/uL (4.8-10.8)
[2020-09-11 16:32] LABS: PLATELET COUNT 293 10x3/uL (130-400)
[2020-09-11 16:38] LABS: APTT 28.2 SECONDS (22.8-39.4); PROTIME 12.2 SECONDS (11.6-15.0)
[2020-09-11 16:54] LABS: CALC OSMOLALITY 275 mosm/kg (275-300); CALCIUM 9.8 mg/dL (8.5-10.1); CARBON DIOXIDE 25.8 mmol/L (21.0-32.0); CHLORIDE - SERUM 103 mmol/L (98-107); CREATININE - SERUM 1.1 mg/dL (0.6-1.3); GLUCOSE 101 mg/dL (74-106); POTASSIUM - SERUM 3.9 mmol/L (3.5-5.1); SODIUM 138 mmol/L (136-145); UREA NITROGEN 13 mg/dL (7-18); eGFR NON AFRICAN AMERICAN 72 mL/min (90-120)
[2020-09-11 17:10] LABS: ALBUMIN 3.6 g/dL (3.4-5.0); ALKALINE PHOSPHATASE 62 U/L (30-120); ALT (SGPT) 31 U/L (10-68); BILIRUBIN - TOTAL 0.45 mg/dL (0.2-1.3); CKMB 1.9 U/L (0.0-3.6); CREATINE KINASE 182 UL (21-232); MAGNESIUM - SERUM 2.1 mg/dL (1.8-2.4); PROTEIN - SERUM 7.5 g/dL (6.4-8.2)
[2020-09-11 17:13] LABS: TROPONIN-I < 0.017 ng/mL (0.000-0.060)
[2020-09-11 19:48] VITALS: BP 145/79
[2020-09-11 20:39] VITALS: BP 137/84
[2020-09-12 00:02] VITALS: BP 158/83
[2020-09-12 00:55] LABS: CKMB 1.2 U/L (0.0-3.6); CREATINE KINASE 141 UL (21-232)
[2020-09-12 05:07] VITALS: BP 139/83
[2020-09-12 06:08] LABS: BASOPHILS 0.5 % (0-2); EOSINOPHILS 1.1 % (0-7); HEMATOCRIT 42.6 % (42.0-54.0); HEMOGLOBIN 14.3 g/dL (13.5-17.5); IMMATURE GRANULOCYTES 0.4 % (0-5); LYMPHOCYTE ABS# 1.87 10x3/uL (1.32-3.57); LYMPHOCYTES 16.5 % (15-50); MCHC 33.6 g/dL (31.0-37.0); MCV 92.2 fL (80.0-100.0); MEAN PLATELET VOLUME 10.6 fL (7.4-10.4); MONOCYTES 14.3 % (2-11); NEUTROPHIL ABS# 7.63 10x3/uL (1.78-5.38); NEUTROPHILS 67.2 % (40-80); PLATELET COUNT 283 10x3/uL (130-400); RBC 4.62 10x6/uL (4.20-6.10); RDW 13.1 % (11.5-14.5); WBC 11.4 10x3/uL (4.8-10.8)
[2020-09-12 06:34] LABS: CALC OSMOLALITY 276 mosm/kg (275-300); CALCIUM 8.7 mg/dL (8.5-10.1); CARBON DIOXIDE 26.8 mmol/L (21.0-32.0); CHLORIDE - SERUM 103 mmol/L (98-107); CHOLESTEROL, TOTAL 118 mg/dL (0-200); CKMB 0.9 U/L (0.0-3.6); CREATINE KINASE 121 UL (21-232); CREATININE - SERUM 1.1 mg/dL (0.6-1.3); GLUCOSE 119 mg/dL (74-106); HDL CHOLESTEROL 40 mg/dL (32-96); LDL CHOLESTEROL 65 mg/dL (0-100); LDL-HDL RATIO 1.6 ratio (1.5-3.5); MAGNESIUM - SERUM 2.1 mg/dL (1.8-2.4); POTASSIUM - SERUM 4.2 mmol/L (3.5-5.1); SODIUM 138 mmol/L (136-145); TRIGLYCERIDE 66 mg/dL (30-200); TROPONIN-I < 0.017 ng/mL (0.000-0.060); UREA NITROGEN 12 mg/dL (7-18); eGFR NON AFRICAN AMERICAN 72 mL/min (90-120)
[2020-09-12 08:13] VITALS: BP 122/75
--- NOTE | 2020-09-12 10:47 | NUR ---
PRE-OPS GIVEN. TO HOSE TENDER BY BED.
[2020-09-12] MEDS ORDERED: PROTONIX40 MG PO (11:58)
[2020-09-12] MEDS ORDERED: CARAFATE1 G PO (11:58)
--- NOTE | 2020-09-12 12:00 | NUR ---
BACK FROM DIE MAKER ELECTRONIC. VS WNL. RIGHT GROIN STABLE WITHOUT BLEEDING OR HEMATOMA NOTED. WILL MONITOR.
--- NOTE | 2020-09-12 16:23 | NUR ---
BED REST UP. GROIN STABLE. IV AND TELEMETRY DCD. DC PLANS GIVEN. UNDERSTANDING VOICED.
--- NOTE | 2020-09-12 17:12 | NUR ---
ESCORTED TO CAR BY W/C.
== END 2020-09-12 17:12 | disposition home or self-care (01) ==
LOC: D.ER 15:52 → D.M2 18:14 → OBSVTIME 18:14 → D.M2 09-12 17:12
PROVIDERS: Family Medicine; ADMIT Family Medicine; ATTEND Family Medicine
DX: I25.10 Atherosclerotic heart disease of native coronary artery without angina pectoris (principal); R07.9 Chest pain, unspecified; E11.9 Type 2 diabetes mellitus without complications; I10 Essential (primary) hypertension; K21.9 Gastro-esophageal reflux disease without esophagitis; Z79.84 Long term (current) use of oral hypoglycemic drugs; E78.5 Hyperlipidemia, unspecified; J44.9 Chronic obstructive pulmonary disease, unspecified; F41.9 Anxiety disorder, unspecified; M19.90 Unspecified osteoarthritis, unspecified site; Z86.16 Personal history of COVID-19

== ENCOUNTER → 2020-10-24 14:24 | Outpatient (CLI) | payer BC ==
[2020-09-11 15:58] VITALS: BMI 27.8
[~2020-10-24 14:24] MED LIST changes: +CARAFATE1 G PO; +PROTONIX40 MG PO
== END | disposition home or self-care (01) ==
LOC: D.CT 14:24
PROVIDERS: ATTEND Clinical Nurse Specialist Family Health
DX: R93.89 Abnormal findings on diagnostic imaging of other specified body structures (principal)